=== PATIENT | female | born 1955 | race Caucasian/White ===

== ENCOUNTER 2025-04-02 15:58 | Emergency (ER) | payer MEDICARE ==
[2025-04-02] MEDS ORDERED: Ketorolac Tromethamine 60 MG/2 ML VIAL ONE (17:39)
[2025-04-02] MEDS ORDERED: Gabapentin 300 MG CAP ONE (17:39)
== END 2025-04-02 17:59 | disposition home or self-care (01) ==
LOC: NAV ERS 15:58
DX: M16.11 Unilateral primary osteoarthritis, right hip (principal); M54.31 Sciatica, right side; F32.A Depression, unspecified; E11.9 Type 2 diabetes mellitus without complications; I10 Essential (primary) hypertension; E03.9 Hypothyroidism, unspecified; F17.210 Nicotine dependence, cigarettes, uncomplicated; Z79.82 Long term (current) use of aspirin; Z79.84 Long term (current) use of oral hypoglycemic drugs; Z79.890 Hormone replacement therapy; Z79.899 Other long term (current) drug therapy
CPT/HCPCS: 72170; 96372; 99283; J1885